=== PATIENT | female | born 1945 | race African-American/Black ===

== ENCOUNTER 2018-09-07 22:35 | Inpatient (IN) | payer MEDICARE, MEDICAID ==
[~2018-09-07] VITALS: Ht 167.6 cm; Wt 136.5 kg
[2018-09-07] MEDS ORDERED: ASPIRIN 81MG TABLET PO ONE (23:00)
[2018-09-07] MEDS ORDERED: DILTIAZEM HCL 5MG/ML 5ML VIAL IV ONE (23:00)
[2018-09-07 23:27] LABS: BASOPHILS % 0.7 % (0.0-2.0); EOSINOPHILS % 0.5 % (0.0-5.0); HEMATOCRIT. 32.7 % (36.0-48.0); HEMOGLOBIN. 10.4 g/dL (12.0-16.0); MEAN CORPUSCULAR HEMOGLOBIN 28.3 pg (28.0-32.0); MEAN CORPUSCULAR VOLUME 88.8 fL (81.0-99.0); MEAN PLATELET VOLUME 7.6 fl (7.4-10.4); MONOCYTES % 9.9 % (2.0-8.0); NEUTROPHILS % 70.9 % (40.0-76.0); PLATELET 196 x1000/uL (130-400); RED BLOOD CELL COUNT 3.68 mill/uL (4.2-5.4); RED CELL DISTRIBUTION WIDTH 18.1 % (11.6-14.6)
[2018-09-07 23:33] LABS: CHLORIDE 110 mEq/L (98-107)
[2018-09-08] VITALS (10 sets, daily range): BP systolic 101–152; BP diastolic 53–88
[2018-09-08] MEDS ORDERED: DILTIAZEM HCL 60MG TABLET PO NR
[2018-09-08 00:12] LABS: INR 1.3; PARTIAL THROMBOPLASTIN TIME 53.4 sec (23.4-31.0); PROTHROMBIN TIME 13.3 sec (9.6-11.0)
[2018-09-08] MEDS ORDERED: HYDROCODONE/ACETAMINOPHEN 10/325MG TABLET PO PRN (00:30)
[2018-09-08] MEDS ORDERED: ONDANSETRON HCL 4MG/2ML INJ IV PRN (00:30)
[2018-09-08] MEDS ORDERED: HYDRALAZINE 20MG/ML VIAL IV PRN (00:30)
[2018-09-08] MEDS ORDERED: GUAIFENESIN 200MG/10ML SUGAR FREE UDC PO PRN (00:30)
[2018-09-08] MEDS ORDERED: ENOXAPARIN 40MG/0.4ML SYR SUBCUT SCH ×2 (00:30→09:00)
[2018-09-08] MEDS ORDERED: IPRATROPIUM/ALBUTEROL 0.5-3(2.5)MG/3ML NEB INH PRN (00:30)
[2018-09-08] MEDS ORDERED: MAGNESIUM/ALUMINUM HYDROXIDE/SIMETHICONE 30ML UDC PO PRN (00:30)
[2018-09-08] MEDS ORDERED: HYDROMORPHONE HCL/PF 2MG/ML CPJ IV PRN (00:30)
[2018-09-08] MEDS ORDERED: NA PHOS,M-B/NA PHOS,DI-BA ENEMA 118ML PR PRN (00:30)
[2018-09-08] MEDS ORDERED: DIPHENHYDRAMINE 50MG/ML VIAL IV PRN (00:30)
[2018-09-08] MEDS ORDERED: CLONIDINE 0.1MG TABLET PO PRN (00:30)
[2018-09-08] MEDS ORDERED: ACETAMINOPHEN 325MG TABLET PO PRN (00:30)
[2018-09-08] MEDS: SODIUM CHLORIDE 0.9% INJ 3ML FLUSH IVF SCH ×2 (06:00→21:28)
[2018-09-08 06:28] LABS: CREATINE KINASE MB FRACTION 1.5 ng/mL (0.5-3.6)
[2018-09-08] MEDS ORDERED: LABE200T28 MT (11:48)
[2018-09-08] MEDS ORDERED: METF-414 MT (11:50)
[2018-09-08] MEDS ORDERED: LOSA1TAB40 MT (11:51)
[2018-09-08] MEDS ORDERED: ASPI-1159 MT (11:53)
[2018-09-08] MEDS ORDERED: MELA10CA MT (11:53)
[2018-09-08] MEDS ORDERED: ALBU4TAB6 MT (11:58)
[2018-09-08] MEDS ORDERED: FOSI1TAB MT (11:58)
[2018-09-08] MEDS ORDERED: LORA10TA64 PO (11:58)
[2018-09-08] MEDS ORDERED: RANI150T7 MT (11:59)
[2018-09-08] MEDS ORDERED: ALEN70TA46 MT (12:00)
[2018-09-08] MEDS ORDERED: NIFE90TA34 MT (12:00)
[2018-09-08] MEDS ORDERED: MIRT15TA7 MT (12:02)
[2018-09-08] MEDS ORDERED: ATOR40TA70 MT (12:02)
[2018-09-08] MEDS ORDERED: CARV3.1242 MT (12:04)
[2018-09-08] MEDS ORDERED: PARO-41 MT (12:07)
[2018-09-08] MEDS ORDERED: MONT10TA24 MT (12:09)
[2018-09-08] MEDS ORDERED: TIOT4MIS5 IH (12:11)
[2018-09-08] MEDS ORDERED: FUROSEMIDE 20MG/2ML VIAL IVP NR (14:45)
[2018-09-08] MEDS ORDERED: IPRATROPIUM/ALBUTEROL 0.5-3(2.5)MG/3ML NEB HHN PRN (14:45)
[2018-09-08] MEDS ORDERED: NICOTINE 21MG PATCH TD NR (14:51)
[2018-09-08] MEDS: IPRATROPIUM/ALBUTEROL 0.5-3(2.5)MG/3ML NEB HHN SCH ×2 (14:54→22:42)
[2018-09-08] MEDS: BUDESONIDE 0.5MG/2ML NEB HHN SCH ×2 (14:57→22:43)
[2018-09-08 15:46] LABS: CLARITY URINE CLOUDY (CLEAR); COLOR URINE YELLOW (YELLOW); KETONES URINE NEGATIVE (NEGATIVE); LEUKOCYTE ESTERASE URINE NEGATIVE (NEGATIVE); NITRITE URINE NEGATIVE (NEGATIVE); OCCULT BLOOD URINE NEGATIVE (NEGATIVE); PROTEIN URINE 1+ (NEGATIVE); SPECIFIC GRAVITY URINE 1.017 (1.005-1.030); UROBILINOGEN URINE 0.2 E.U./dL (0.2-1.0)
[2018-09-08 15:58] LABS: *AMPHETAMINES SCREEN URINE NEGATIVE (NEGATIVE); *BARBITURATES SCREEN URINE NEGATIVE (NEGATIVE)
[2018-09-08 15:59] LABS: *BENZODIAZEPINES SCREEN URINE NEGATIVE (NEGATIVE); *COCAINE SCREEN URINE NEGATIVE (NEGATIVE); CANNABINOID URINE SCREEN NEGATIVE (NEGATIVE); METHADONE URINE SCREEN NEGATIVE (NEGATIVE); OPIATES URINE SCREEN NEGATIVE (NEGATIVE); PHENCYCLIDINE URINE SCREEN NEGATIVE (NEGATIVE)
[2018-09-08 16:15] LABS: CREATINE KINASE 123 IU/L (26-192)
[2018-09-08] MEDS: ENOXAPARIN 120MG/0.8ML SYR SUBCUT SCH (18:15)
[2018-09-08] MEDS: METOPROLOL TARTRATE 50MG TABLET PO SCH (21:28)
[2018-09-08] MEDS: LORAZEPAM 2MG/ML CPJ IV PRN (22:40)
[2018-09-09] VITALS (13 sets, daily range): BP systolic 100–133; BP diastolic 27–81
[2018-09-09] MEDS: IPRATROPIUM/ALBUTEROL 0.5-3(2.5)MG/3ML NEB HHN SCH ×6 (01:01→20:27)
[2018-09-09] MEDS: SODIUM CHLORIDE 0.9% INJ 3ML FLUSH IVF SCH ×3 (05:59→21:18)
[2018-09-09] MEDS: ENOXAPARIN 120MG/0.8ML SYR SUBCUT SCH (05:59)
[2018-09-09 06:55] LABS: BASOPHILS % 0.2 % (0.0-2.0); EOSINOPHILS % 0.1 % (0.0-5.0); HEMATOCRIT. 30.4 % (36.0-48.0); HEMOGLOBIN. 9.8 g/dL (12.0-16.0); LYMPHOCYTES % 16.9 % (20.0-50.0); MEAN CORPUSCULAR HEMOGLOBIN 28.8 pg (28.0-32.0); MEAN CORPUSCULAR VOLUME 89.9 fL (81.0-99.0); MEAN PLATELET VOLUME 8.5 fl (7.4-10.4); MONOCYTES % 10.6 % (2.0-8.0); NEUTROPHILS % 72.2 % (40.0-76.0); PLATELET 175 x1000/uL (130-400); RED BLOOD CELL COUNT 3.38 mill/uL (4.2-5.4); RED CELL DISTRIBUTION WIDTH 17.7 % (11.6-14.6)
[2018-09-09 07:01] LABS: CHLORIDE 109 mEq/L (98-107)
[2018-09-09 07:21] LABS: LDL CHOLESTEROL 19 mg/dL (5-100)
[2018-09-09 07:23] LABS: T4 FREE 1.34 ng/dL (0.76-1.46)
[2018-09-09 07:24] LABS: HDL CHOLESTEROL 55 mg/dL (40-59)
[2018-09-09] MEDS: FUROSEMIDE 20MG/2ML VIAL IVP SCH (08:16)
[2018-09-09] MEDS: NICOTINE 21MG PATCH TD SCH (08:17)
[2018-09-09] MEDS: METOPROLOL TARTRATE 50MG TABLET PO SCH ×2 (08:17→20:35)
[2018-09-09] MEDS ORDERED: DIGOXIN 500MCG/2ML AMP IV NR (08:30)
[2018-09-09] MEDS: BUDESONIDE 0.5MG/2ML NEB HHN SCH ×2 (08:48→20:27)
[2018-09-09] MEDS: METHYLPREDNISOLONE SOD SUCC 40 MG/ML VIAL IV SCH ×2 (13:15→20:34)
[2018-09-09] MEDS ORDERED: APIXABAN 5 MG TABLET PO SCH (13:45)
[2018-09-09] MEDS: LORAZEPAM 2MG/ML CPJ IV PRN (14:11)
[2018-09-09 16:53] LABS: PHOSPHORUS 3.8 mg/dL (2.5-4.9)
[2018-09-09] MEDS ORDERED: MAGNESIUM 1 G PREMIX 100 ML IV SCH (21:00)
[2018-09-10] VITALS (12 sets, daily range): BP systolic 114–160; BP diastolic 55–94
[2018-09-10] MEDS: IPRATROPIUM/ALBUTEROL 0.5-3(2.5)MG/3ML NEB HHN SCH ×6 (00:16→20:14)
[2018-09-10] MEDS: METHYLPREDNISOLONE SOD SUCC 40 MG/ML VIAL IV SCH ×3 (04:03→20:28)
[2018-09-10] MEDS: SODIUM CHLORIDE 0.9% INJ 3ML FLUSH IVF SCH ×3 (05:11→20:29)
[2018-09-10 06:53] LABS: BASOPHILS % 0.1 % (0.0-2.0); HEMATOCRIT. 30.9 % (36.0-48.0); HEMOGLOBIN. 10.1 g/dL (12.0-16.0); LYMPHOCYTES % 9.9 % (20.0-50.0); MEAN CORPUSCULAR HEMOGLOBIN 29.1 pg (28.0-32.0); MEAN CORPUSCULAR VOLUME 89.4 fL (81.0-99.0); MEAN PLATELET VOLUME 8.4 fl (7.4-10.4); PLATELET 178 x1000/uL (130-400); RED BLOOD CELL COUNT 3.46 mill/uL (4.2-5.4)
[2018-09-10] MEDS: NICOTINE 21MG PATCH TD SCH (08:28)
[2018-09-10] MEDS: LORAZEPAM 2MG/ML CPJ IV PRN ×2 (08:28→20:29)
[2018-09-10] MEDS: APIXABAN 5 MG TABLET PO SCH ×2 (08:29→16:58)
[2018-09-10] MEDS: METOPROLOL TARTRATE 50MG TABLET PO SCH ×2 (08:30→20:29)
[2018-09-10] MEDS: FUROSEMIDE 20MG/2ML VIAL IVP SCH (08:31)
[2018-09-10] MEDS: BUDESONIDE 0.5MG/2ML NEB HHN SCH ×2 (09:10→20:14)
[2018-09-10] MEDS: DOCUSATE SODIUM 100MG CAPSULE PO PRN (16:58)
[2018-09-11] VITALS (12 sets, daily range): BP systolic 105–149; BP diastolic 33–91
[2018-09-11] MEDS: IPRATROPIUM/ALBUTEROL 0.5-3(2.5)MG/3ML NEB HHN SCH ×4 (00:17→12:41)
[2018-09-11] MEDS: SODIUM CHLORIDE 0.9% INJ 3ML FLUSH IVF SCH ×3 (05:03→20:36)
[2018-09-11] MEDS: METHYLPREDNISOLONE SOD SUCC 40 MG/ML VIAL IV SCH ×2 (05:03→12:56)
[2018-09-11 06:49] LABS: HEMOGLOBIN. 10.5 g/dL (12.0-16.0); MEAN CORPUSCULAR HEMOGLOBIN 29.1 pg (28.0-32.0); MEAN CORPUSCULAR VOLUME 89.3 fL (81.0-99.0); MEAN PLATELET VOLUME 8.8 fl (7.4-10.4); PLATELET 182 x1000/uL (130-400); RED BLOOD CELL COUNT 3.59 mill/uL (4.2-5.4); RED CELL DISTRIBUTION WIDTH 18.1 % (11.6-14.6)
[2018-09-11] MEDS ORDERED: NALOXONE HCL 0.4 MG/ML 1ML VIAL ONE (08:01)
[2018-09-11] MEDS: BUDESONIDE 0.5MG/2ML NEB HHN SCH (08:01)
[2018-09-11] MEDS: DOCUSATE SODIUM 100MG CAPSULE PO PRN (08:32)
[2018-09-11] MEDS: APIXABAN 5 MG TABLET PO SCH ×2 (08:32→16:53)
[2018-09-11] MEDS: NICOTINE 21MG PATCH TD SCH (08:33)
[2018-09-11] MEDS: METOPROLOL TARTRATE 50MG TABLET PO SCH (08:33)
[2018-09-11] MEDS: FUROSEMIDE 20MG/2ML VIAL IVP SCH (08:34)
[2018-09-11 09:09] LABS: BG BASE EXCESS -0.1 mmol/L (-2.0-2.0); BG CARBOXYHEMOGLOBIN 0.1 % (0.5-1.5); BG DEOXYHEMOGLOBIN 11.6 % (0.0-5.0); BG FRACTION INSPIRED OXYGEN 21; BG HCO3 ACT 24.2 mmol/L (22.0-26.0); BG METHEMOGLOBIN 0.3 % (0.0-1.5); BG OXYGEN SATURATION 88.4 % (92.0-98.5); BG PCO2 38.2 mmHg (35.0-45.0); BG PH 7.419 (7.350-7.450); BG PO2 60.3 mmHg (75.0-100.0); BG SAMPLE SITE RIGHT RADIAL; BG TOTAL HEMOGLOBIN 11.6 g/dL (12.0-18.0); BG VENT MODE ROOM AIR
[2018-09-11 09:22] LABS: NUCLEATED RED BLOOD CELLS 1 /100 WBC; PLATELET ESTIMATE NORMAL
[2018-09-11] MEDS ORDERED: DILTIAZEM HCL 300MG CAPSULE SR 24HR PO SCH (14:45)
[2018-09-11] MEDS: CEFTRIAXONE 1 G PREMIX 50 ML IV SCH (15:43)
[2018-09-11] MEDS: LORAZEPAM 2MG/ML CPJ IV PRN (15:44)
[2018-09-11] MEDS: AZITHROMYCIN 500 MG TABLET PO SCH (15:44)
[2018-09-11] MEDS: DILTIAZEM HCL 30MG TABLET PO SCH ×2 (15:55→20:35)
[2018-09-11] MEDS: IPRATROPIUM BROMIDE (0.02%) 0.5MG/2.5ML NEB HHN SCH ×3 (15:56→23:52)
[2018-09-11] MEDS: PREDNISONE 20MG TABLET PO SCH (16:53)
[2018-09-11] MEDS: ACETYLCYSTEINE 100MG/ML 10% VIAL 4ML INH SCH (21:00)
[2018-09-12] VITALS (11 sets, daily range): BP systolic 120–158; BP diastolic 26–101
[2018-09-12] MEDS: DILTIAZEM HCL 30MG TABLET PO SCH ×4 (01:29→17:31)
[2018-09-12] MEDS: ACETYLCYSTEINE 100MG/ML 10% VIAL 4ML INH SCH ×2 (03:02→14:31)
[2018-09-12] MEDS: IPRATROPIUM BROMIDE (0.02%) 0.5MG/2.5ML NEB HHN SCH ×3 (03:02→15:25)
[2018-09-12] MEDS: LORAZEPAM 2MG/ML CPJ IV PRN ×2 (05:12→11:27)
[2018-09-12] MEDS: SODIUM CHLORIDE 0.9% INJ 3ML FLUSH IVF SCH ×2 (05:12→14:32)
[2018-09-12 06:49] LABS: HEMATOCRIT. 33.2 % (36.0-48.0); HEMOGLOBIN. 10.7 g/dL (12.0-16.0); MEAN CORPUSCULAR HEMOGLOBIN 28.7 pg (28.0-32.0); MEAN PLATELET VOLUME 8.8 fl (7.4-10.4); PLATELET 190 x1000/uL (130-400); RED BLOOD CELL COUNT 3.73 mill/uL (4.2-5.4); RED CELL DISTRIBUTION WIDTH 18.2 % (11.6-14.6)
[2018-09-12 08:17] LABS: PLATELET ESTIMATE NORMAL
[2018-09-12] MEDS: APIXABAN 5 MG TABLET PO SCH ×2 (08:32→16:45)
[2018-09-12] MEDS: FUROSEMIDE 20MG/2ML VIAL IVP SCH (08:32)
[2018-09-12] MEDS: PREDNISONE 20MG TABLET PO SCH (08:32)
[2018-09-12] MEDS: AZITHROMYCIN 500 MG TABLET PO SCH (08:32)
[2018-09-12] MEDS: NICOTINE 21MG PATCH TD SCH (08:33)
[2018-09-12] MEDS ORDERED: DEXTROSE 50% WATER 50ML SYRINGE IV PRN (13:00)
[2018-09-12] MEDS: BLOOD SUGAR DIAGNOSTIC STRIP TEST SCH ×2 (13:00→17:17)
[2018-09-12] MEDS: INSULIN LISPRO 100 UNITS/ML SUBCUT SCH ×2 (13:00→17:33)
[2018-09-12] MEDS: CEFTRIAXONE 1 G PREMIX 50 ML IV SCH (15:52)
[2018-09-13] MEDS ORDERED: PREDNISONE 20MG TABLET PO SCH (09:00)
== END 2018-09-12 19:16 | disposition still patient (30) | DRG 871 ==
LOC: ER 22:35 → 5EST 23:55 → EDBEDREQTM 23:58 → EDBEDREQ 23:58 → ENRESERV 09-08 07:05
PROVIDERS: ADMIT Internal Medicine; ATTEND Internal Medicine
DX: A41.9 Sepsis, unspecified organism (principal); J18.1 Lobar pneumonia, unspecified organism; J96.01 Acute respiratory failure with hypoxia; N17.9 Acute kidney failure, unspecified; J44.1 Chronic obstructive pulmonary disease with (acute) exacerbation; I13.0 Hypertensive heart and chronic kidney disease with heart failure and stage 1 through stage 4 chronic kidney disease, or unspecified chronic kidney disease; J44.0 Chronic obstructive pulmonary disease with (acute) lower respiratory infection; I50.42 Chronic combined systolic (congestive) and diastolic (congestive) heart failure; Z68.42 Body mass index [BMI] 45.0-49.9, adult; N18.9 Chronic kidney disease, unspecified; E66.01 Morbid (severe) obesity due to excess calories; D64.9 Anemia, unspecified; E11.22 Type 2 diabetes mellitus with diabetic chronic kidney disease; I48.2 Chronic atrial fibrillation; E78.5 Hyperlipidemia, unspecified; F17.210 Nicotine dependence, cigarettes, uncomplicated; M19.90 Unspecified osteoarthritis, unspecified site; M10.9 Gout, unspecified; Z85.42 Personal history of malignant neoplasm of other parts of uterus; Z90.710 Acquired absence of both cervix and uterus; Z90.49 Acquired absence of other specified parts of digestive tract; Z79.82 Long term (current) use of aspirin; Z79.899 Other long term (current) drug therapy
CPT/HCPCS: 36415; 36600; 71045; 76770; 78580; 80048; 80061; 80305; 82375; 82550; 82553; 82805; 82962; 83036; 83735; 83880; 84100; 84439; 84443; 84484; 85379; 87804; 93005; 93306; 93970; 94640; 96374; 97162; 99291; A6261; J0696; J1160; J1650; J1815; J1940; J2060; J2310; J2920; J3475; J3490; J7050; J7512; J7608; J7620; J7626

== ENCOUNTER 2018-10-07 20:34 | Inpatient (IN) | payer MEDICARE, MEDICAID ==
[~2018-10-07] VITALS: Ht 175.3 cm; Wt 131.5 kg
[~2018-10-07 20:34] MED LIST: ALBU4TAB6 MT; ALEN70TA46 MT; ASPI-1159 MT; ATOR40TA70 MT; CARV3.1242 MT; FOSI1TAB MT; LABE200T28 MT; LORA10TA64 PO; LOSA1TAB40 MT; MELA10CA MT; METF-414 MT; MIRT15TA7 MT; MONT10TA24 MT; NIFE90TA34 MT; PARO-41 MT; RANI150T7 MT; TIOT4MIS5 IH
[2018-10-07] MEDS ORDERED: DEXT 10% WATER 1,000 ML IV ONE (21:21)
[2018-10-07] MEDS ORDERED: FUROSEMIDE 100MG/10ML VIAL IVP ONE (21:30)
[2018-10-07 21:55] LABS: PHOSPHORUS 2.8 mg/dL (2.5-4.9)
[2018-10-07] MEDS ORDERED: POTASSIUM CHLORIDE 20MEQ TABLET SR PO ONE (22:00)
[2018-10-08] MEDS ORDERED: GUAIFENESIN 200MG/10ML SUGAR FREE UDC PO PRN (00:15)
[2018-10-08] MEDS ORDERED: MAGNESIUM 1 G PREMIX 100 ML IV NR (00:15)
[2018-10-08] MEDS ORDERED: DEXTROSE 50% WATER 50ML SYRINGE IV PRN (00:15)
[2018-10-08] MEDS ORDERED: HYDROMORPHONE HCL/PF 2MG/ML CPJ IV PRN (00:15)
[2018-10-08] MEDS ORDERED: ACETAMINOPHEN 325MG TABLET PO PRN (00:15)
[2018-10-08] MEDS ORDERED: LORAZEPAM 2MG/ML CPJ IV PRN (00:15)
[2018-10-08] MEDS ORDERED: MAGNESIUM/ALUMINUM HYDROXIDE/SIMETHICONE 30ML UDC PO PRN (00:15)
[2018-10-08] MEDS ORDERED: HYDRALAZINE 20MG/ML VIAL IV PRN (00:15)
[2018-10-08] MEDS ORDERED: DOCUSATE SODIUM 100MG CAPSULE PO PRN (00:15)
[2018-10-08] MEDS ORDERED: DIPHENHYDRAMINE 50MG/ML VIAL IV PRN (00:15)
[2018-10-08] MEDS ORDERED: ONDANSETRON HCL 4MG/2ML INJ IV PRN (00:15)
[2018-10-08] MEDS ORDERED: CLONIDINE 0.1MG TABLET PO PRN (00:15)
[2018-10-08] MEDS ORDERED: NA PHOS,M-B/NA PHOS,DI-BA ENEMA 118ML PR PRN (00:15)
[2018-10-08] MEDS ORDERED: IPRATROPIUM/ALBUTEROL 0.5-3(2.5)MG/3ML NEB INH PRN (00:15)
[2018-10-08 01:23] LABS: HEMATOCRIT 31.6 % (36.0-48.0); HEMOGLOBIN 9.9 g/dL (12.0-16.0); MEAN CORPUSCULAR HEMOGLOBIN 27.7 pg (28.0-32.0); MEAN CORPUSCULAR VOLUME 88.2 fL (81.0-99.0); PLATELET 323 x1000/uL (130-400); RED BLOOD CELL COUNT 3.58 mill/uL (4.2-5.4); RED CELL DISTRIBUTION WIDTH 18.3 % (11.6-14.6)
[2018-10-08] MEDS ORDERED: KCL 20MEQ/100ML PREMIX 100 ML IV NR (02:00)
[2018-10-08 02:50] LABS: CLARITY URINE CLEAR (CLEAR); COLOR URINE YELLOW (YELLOW); KETONES URINE NEGATIVE (NEGATIVE); LEUKOCYTE ESTERASE URINE NEGATIVE (NEGATIVE); NITRITE URINE NEGATIVE (NEGATIVE); OCCULT BLOOD URINE NEGATIVE (NEGATIVE); PROTEIN URINE NEGATIVE (NEGATIVE); SPECIFIC GRAVITY URINE 1.011 (1.005-1.030); UROBILINOGEN URINE 0.2 E.U./dL (0.2-1.0)
[2018-10-08] MEDS ORDERED: LEVOFLOXACIN 500MG PREMIX 100 ML IV NR (03:00)
[2018-10-08 04:40] VITALS: BP 113/61
[2018-10-08] MEDS: BLOOD SUGAR DIAGNOSTIC STRIP TEST SCH ×3 (06:00→18:17)
[2018-10-08] MEDS: INSULIN LISPRO 100 UNITS/ML SUBCUT SCH ×3 (06:00→18:00)
[2018-10-08] MEDS: SODIUM CHLORIDE 0.9% INJ 3ML FLUSH IVF SCH ×2 (07:28→14:00)
[2018-10-08 08:00] VITALS: BP 114/60
[2018-10-08 09:00] VITALS: BP 114/60
[2018-10-08] MEDS ORDERED: ENOXAPARIN 30MG/0.3ML SYR SUBCUT SCH (09:00)
[2018-10-08 10:10] LABS: CREATINE KINASE MB FRACTION 1.3 ng/mL (0.5-3.6)
[2018-10-08] MEDS ORDERED: GLIP5TAB12 PO (11:00)
[2018-10-08] MEDS ORDERED: BUDE6HFA INH (11:00)
[2018-10-08] MEDS ORDERED: METO-396 PO (11:00)
[2018-10-08] MEDS ORDERED: PROT40 PO (11:00)
[2018-10-08] MEDS ORDERED: FURO40TA5 PO (11:00)
[2018-10-08] MEDS ORDERED: BUME1TAB4 PO (11:02)
[2018-10-08] MEDS ORDERED: RIVA20TA PO (11:02)
[2018-10-08] MEDS ORDERED: AMLO10TA80 PO (11:15)
[2018-10-08] MEDS ORDERED: NIFE90TA34 PO (11:15)
[2018-10-08] MEDS ORDERED: DIGO0.12 PO (11:15)
[2018-10-08] MEDS ORDERED: FOSI1TAB PO (11:16)
[2018-10-08] MEDS ORDERED: ALLO100T PO (11:16)
[2018-10-08 12:00] VITALS: BP 119/68
[2018-10-08] MEDS: HYDROCODONE/ACETAMINOPHEN 10/325MG TABLET PO PRN ×2 (15:03→21:17)
[2018-10-08 15:57] LABS: CREATINE KINASE MB FRACTION 1.3 ng/mL (0.5-3.6)
[2018-10-08 16:00] VITALS: BP 115/80
[2018-10-08 16:21] LABS: BG BASE EXCESS 9.5 mmol/L (-2.0-2.0); BG CARBOXYHEMOGLOBIN 0.3 % (0.5-1.5); BG HCO3 ACT 33.6 mmol/L (22.0-26.0); BG METHEMOGLOBIN 0.1 % (0.0-1.5); BG OXYHEMOGLOBIN 96.6 % (94.0-97.0); BG PCO2 43.8 mmHg (35.0-45.0); BG PH 7.503 (7.350-7.450); BG PO2 94.5 mmHg (75.0-100.0); BG SAMPLE SITE RIGHT RADIAL; BG TOTAL HEMOGLOBIN 10.5 g/dL (12.0-18.0); BG VENT MODE NASAL CANNULA
[2018-10-08] MEDS: ENOXAPARIN 100MG/ML SYR SUBCUT SCH (17:00)
[2018-10-08] MEDS: ENOXAPARIN 30MG/0.3ML SYR SUBCUT SCH (17:00)
[2018-10-08] MEDS: IPRATROPIUM/ALBUTEROL 0.5-3(2.5)MG/3ML NEB HHN SCH ×2 (17:55→20:30)
[2018-10-08 20:00] VITALS: BP 106/57
[2018-10-08] MEDS ORDERED: IPRATROPIUM/ALBUTEROL 0.5-3(2.5)MG/3ML NEB HHN PRN (22:00)
[2018-10-09] VITALS: BP 128/62
[2018-10-09] MEDS: BLOOD SUGAR DIAGNOSTIC STRIP TEST SCH ×3 (00:34→12:19)
[2018-10-09] MEDS: IPRATROPIUM/ALBUTEROL 0.5-3(2.5)MG/3ML NEB HHN SCH ×4 (01:38→13:45)
[2018-10-09] MEDS: SODIUM CHLORIDE 0.9% INJ 3ML FLUSH IVF SCH ×2 (01:54→05:53)
[2018-10-09 04:00] VITALS: BP 115/67
[2018-10-09] MEDS: INSULIN LISPRO 100 UNITS/ML SUBCUT SCH ×3 (05:53→12:38)
[2018-10-09] MEDS ORDERED: LEVOFLOXACIN 500MG PREMIX 100 ML IV SCH (06:00)
[2018-10-09 06:53] LABS: BASOPHILS % 0.2 % (0.0-2.0); EOSINOPHILS % 0.1 % (0.0-5.0); HEMATOCRIT. 31.1 % (36.0-48.0); HEMOGLOBIN. 9.8 g/dL (12.0-16.0); LYMPHOCYTES % 12.6 % (20.0-50.0); MEAN CORPUSCULAR HEMOGLOBIN 27.9 pg (28.0-32.0); MEAN CORPUSCULAR VOLUME 88.3 fL (81.0-99.0); MONOCYTES % 9.5 % (2.0-8.0); NEUTROPHILS % 77.6 % (40.0-76.0); PLATELET 340 x1000/uL (130-400); RED BLOOD CELL COUNT 3.52 mill/uL (4.2-5.4); RED CELL DISTRIBUTION WIDTH 18.8 % (11.6-14.6)
[2018-10-09 07:01] LABS: CHLORIDE 98 mEq/L (98-107)
[2018-10-09 07:15] LABS: LDL CHOLESTEROL 37 mg/dL (5-100)
[2018-10-09 07:17] LABS: HDL CHOLESTEROL 43 mg/dL (40-59); T4 FREE 1.47 ng/dL (0.76-1.46)
[2018-10-09 08:00] VITALS: BP 123/66
[2018-10-09] MEDS ORDERED: LEVOFLOXACIN 250MG PREMIX 50 ML IV SCH (08:00)
[2018-10-09] MEDS: ENOXAPARIN 30MG/0.3ML SYR SUBCUT SCH (09:31)
[2018-10-09] MEDS: ENOXAPARIN 100MG/ML SYR SUBCUT SCH (09:31)
[2018-10-09 12:00] VITALS: BP 105/70
[2018-10-09] MEDS ORDERED: APIXABAN 5 MG TABLET PO SCH (17:00)
[2018-10-09] MEDS ORDERED: DIGOXIN 125MCG TABLET PO SCH (18:00)
== END 2018-10-09 14:55 | disposition home or self-care (01) | DRG 682 ==
LOC: ER 20:34 → 5WST 23:22 → ENRESERV 10-08 02:49
PROVIDERS: ADMIT Internal Medicine; ATTEND Internal Medicine
DX: N17.0 Acute kidney failure with tubular necrosis (principal); J96.00 Acute respiratory failure, unspecified whether with hypoxia or hypercapnia; I50.41 Acute combined systolic (congestive) and diastolic (congestive) heart failure; I13.0 Hypertensive heart and chronic kidney disease with heart failure and stage 1 through stage 4 chronic kidney disease, or unspecified chronic kidney disease; E87.2 Acidosis; Z68.41 Body mass index [BMI] 40.0-44.9, adult; E11.649 Type 2 diabetes mellitus with hypoglycemia without coma; E83.42 Hypomagnesemia; E87.6 Hypokalemia; E11.22 Type 2 diabetes mellitus with diabetic chronic kidney disease; N18.3 Chronic kidney disease, stage 3 (moderate); E78.5 Hyperlipidemia, unspecified; J44.9 Chronic obstructive pulmonary disease, unspecified; S09.90XA Unspecified injury of head, initial encounter; X58.XXXA Exposure to other specified factors, initial encounter; E66.01 Morbid (severe) obesity due to excess calories; Z79.82 Long term (current) use of aspirin; Z79.84 Long term (current) use of oral hypoglycemic drugs; Z79.899 Other long term (current) drug therapy; Z88.8 Allergy status to other drugs, medicaments and biological substances; Z90.710 Acquired absence of both cervix and uterus; Z90.49 Acquired absence of other specified parts of digestive tract; Z87.891 Personal history of nicotine dependence; Z79.01 Long term (current) use of anticoagulants; Z79.51 Long term (current) use of inhaled steroids; Z79.83 Long term (current) use of bisphosphonates; Z91.14 Patient's other noncompliance with medication regimen; Y93.89 Activity, other specified; Y92.89 Other specified places as the place of occurrence of the external cause; Y99.8 Other external cause status
CPT/HCPCS: 36415; 36600; 71045; 80048; 80061; 82375; 82550; 82553; 82805; 82962; 83036; 83605; 83735; 83880; 84100; 84439; 84443; 84484; 85027; 85379; 93005; 93306; 94640; 99285; J1170; J1650; J1815; J1940; J1956; J3475; J3480; J7620; A4315